=== PATIENT | female | born 1980 | race Caucasian/White ===

== ENCOUNTER 2018-10-06 13:47 | Emergency (ER) | payer OTHER ==
[~2018-10-06] VITALS: Ht 165.1 cm; Wt 108.9 kg
[2018-10-06] MEDS ORDERED: PRAVACHOL40 MG PO (13:54)
[2018-10-06] MEDS ORDERED: GLUCOPHAGE1000 MG PO (13:54)
[2018-10-06] MEDS ORDERED: TENORMIN25 MG PO (13:54)
[2018-10-06] MEDS ORDERED: PRILOSEC20 M1 PO (13:55)
[2018-10-06] MEDS ORDERED: CLARITIN10 MG PO (13:55)
[2018-10-06 14:29] LABS: BASO # 0.1 10*3/uL (0.0-0.1); BASO % 0.6 % (0.0-1.0); EOS # 0.2 10*3/uL (0.0-0.4); EOS % 2.7 % (1.0-4.0); HEMATOCRIT 39.3 % (37.0-47.0); LYMPH # 2.7 10*3/uL (1.3-4.4); LYMPH % 32.6 % (27.0-41.0); MEAN CELL VOLUME 91.8 fl (81.0-99.0); MEAN CORPUSCULAR HGB 30.4 pg (27.0-31.0); MEAN CORPUSCULAR HGB CONC 33.1 g/dl (33.0-37.0); MEAN PLATELET VOLUME 9.6 fl (9.6-12.3); MONO # 0.6 10*3/uL (0.1-1.0); MONO % 6.8 % (3.0-9.0); NEUT # 4.7 10*3/uL (2.3-7.9); NEUT % 56.9 % (47.0-73.0); PLATELET COUNT AUTOMATED 299 10*3/uL (130-400); RED BLOOD COUNT 4.28 10*6/uL (4.10-5.10); RED CELL DISTRI WIDTH 13.6 % (0-14.5); WHITE BLOOD COUNT 8.2 10*3/uL (4.8-10.8)
[2018-10-06] MEDS ORDERED: AUGMENTIN 875875 MG PO (14:34)
[2018-10-06] MEDS ORDERED: FLONASE ALLERG9.9 ML NAS (14:34)
[2018-10-06 14:43] LABS: ALBUMIN 3.5 gm/dl (3.1-4.5); ALKALINE PHOSPHATASE 79 U/L (45-117); BUN 16 mg/dl (7-24); CHLORIDE 107 mmol/L (98-107); CREATININE 0.96 mg/dL (0.55-1.02); POTASSIUM 4.2 mmol/L (3.5-5.1); SGOT/AST 12 IU/L (3-35); SGPT/ALT 21 U/L (12-78); SODIUM 137 mmol/L (136-145); TOTAL PROTEIN 7.5 gm/dL (6.4-8.2)
[2018-10-06 14:46] LABS: ACT PARTIAL THROMBO TIME 24.3 SECONDS (20.8-31.5); INTERNATIONAL NORM RATIO 0.9 (2.0-3.5)
== END 2018-10-06 15:18 | disposition home or self-care (01) ==
LOC: ED 13:47
PROVIDERS: Physician Assistant
DX: J32.0 Chronic maxillary sinusitis (principal); R23.3 Spontaneous ecchymoses; R42 Dizziness and giddiness; E11.9 Type 2 diabetes mellitus without complications; I48.91 Unspecified atrial fibrillation; K21.9 Gastro-esophageal reflux disease without esophagitis; Z88.6 Allergy status to analgesic agent; Z79.84 Long term (current) use of oral hypoglycemic drugs; Z79.899 Other long term (current) drug therapy

== ENCOUNTER 2018-11-14 21:15 | Inpatient (IN) | payer OTHER ==
[~2018-11-14] VITALS: Ht 165.1 cm; Wt 113.0 kg
--- NOTE | ~2018-11-14 | EKG ---
[place], [place] ELECTROCARDIOGRAM REPORT NAME: OSCAR LAUREANO UNIT #: [id number] ROOM: 427 DOCTOR: JOEY DRAFT REPORT BIRTHDATE: [birth year] [facility] Test Date: 2018-11-15 Test Time: 00:05:57 Pat Name: OSCAR LAUREANO Department: Room: 427 Gender: F Case Work Aide: Maggy Hernandez : 1980 Requested By: RUBIN LEYVA Order Number: [id number] Reading MD: Andrew Schmidt MD Measurements Intervals [place] Rate: 82 P: 59 MD: 165 QRS: -49 QRSD: 99 T: 32 QT: 390 QTc: 456 Interpretive Statements Sinus rhythm Left anterior fascicular block Low voltage, precordial leads Compared to earlier ECG this date Incomplete right bundle-branch block no longer present Electronically Signed On 11-16-2018 15:43:42 PST by Andrew Schmidt MD CM:EKGRPT:ELECTROCARDIOGRAM REPORT [id number] RUBIN LANDEROS DRAFT REPORT RUBIN LEYVA DO
--- NOTE | ~2018-11-14 | CON ---
[place], [place] REPORT OF CONSULTATION NAME: OSCAR LAUREANO [facility] #: [id number] UNIT #: [id number] ROOM: 427 DOCTOR: JELNEA MORRIS MD BIRTHDATE: [birth year] DOS: 11/15/2018 CARDIOLOGY CONSULTATION The patient was seen on 11/15/2018. REASON FOR CONSULTATION: Chest pain. HISTORY OF PRESENT ILLNESS: The patient is a 38-year-old woman with a history of obesity, type 2 diabetes mellitus, and cigarette abuse. She states that she moved to the local area from [place] in 07/2018. Prior to moving she was evaluated by a [facility] in [facility] by the name of Dr. Lopez on [address] [facility]. She apparently had several hospitalizations for fast heartbeat. She states that her pulse was measured over 200 beats per minute, but she was not given a diagnosis of SVT or atrial fibrillation. She states that she did have a stress test and an echocardiogram in 01/2018 and both of them were normal. She has had intermittent chest pain since then, but typically they are not persistent and resolved spontaneously. She came into the hospital on this occasion on 11/14/2018 when her chest pains did not resolve spontaneously. She stated that she had multiple episodes of chest pain beginning to the left center of her chest and radiating into her axilla and left arm. The pains were sharp and could be severe. They could last anywhere from 15 minutes to a few hours. They were not associated with dyspnea or diaphoresis and there was nothing that she could do to make them better or worse. There was nothing that seemed to bring on the pains. They did come on at rest. The patient denies any previous history of myocardial infarction or stroke. She has had diabetes for many years and has developed abdominal pain which may be due to diabetic gastroparesis. The patient believes that some of her chest pains are related to her abdominal pain. PAST MEDICAL HISTORY: Includes: 1. Obesity with body mass index over 40. 2. Type 2 diabetes mellitus. 3. Long-term and ongoing cigarette abuse. The patient currently smokes one-half pack per day, but has smoked more in the past. 4. Gastroesophageal reflux disease. 5. Hyperlipidemia. 6. Status-post surgery on her neck. 7. Status post appendectomy, cholecystectomy, lithotripsy, and tonsillectomy, as well as a right salpingo-oophorectomy. 8. History of rapid heartbeat, not currently characterized. 9. The patient claims to have had a stress test with Lexiscan and an echocardiogram in 01/2018, which were unremarkable. FAMILY HISTORY: Her father does have atrial fibrillation. Her mother has diabetes mellitus, hypertension, and cancer. [place], [place] REPORT OF CONSULTATION NAME: OSCAR LAUREANO UNIT #: [id number] ROOM: 427 DOCTOR: JELENA MORRIS MD BIRTHDATE: [birth year] REVIEW OF SYSTEMS: The patient denies diplopia or loss of vision. She denies lightheadedness or syncope. She denies nausea or vomiting. She denies fevers, chills, sweats, or recent weight change. She has had chest pain noted above. She denies orthopnea or PND. She denies cough, fevers, chills, or sweats. She denies hemoptysis or hematemesis. She denies change in bowel or bladder habits, but she states that she does have a chronic abdominal bloating and abdominal pain. She denies blood in her stools or urine. She denies peripheral edema. She denies any history of blood clots. The remainder of the review of systems is negative except as noted above. SOCIAL HISTORY: The patient recently moved to this area from [place]. She smokes about a half pack a day. She does not consume alcohol or illegal drugs. MEDICATIONS: Prior to admission atenolol 25 mg b.i.d., glyburide 2.5 mg b.i.d., metformin 1000 mg b.i.d., omeprazole 40 mg daily, pravastatin 40 mg daily at bedtime. ALLERGIES: SHE LISTS AN ALLERGY TO ASPIRIN. PHYSICAL EXAMINATION: GENERAL: The patient is an overweight white female who is awake, alert and oriented. VITAL SIGNS: Pulse is 82 and regular, blood pressure is 106/68. She is afebrile. She weighs 113 kg and has a body mass index of 41.5. HEENT: Normocephalic and atraumatic. Extraocular muscles are intact. Sclerae are clear. Pupils are equal, round, and react to light. The oral mucosa is moist. Tongue is midline. NECK: Her neck is supple. She has no jugular distention. Carotids are full. There are no bruits. She has no neck or supraclavicular masses and no thyromegaly. RESPIRATORY: Respirations are unlabored. Her chest is clear to auscultation and percussion. She has no presacral edema or chest wall tenderness. CARDIOVASCULAR: Her heart has a regular rhythm. She had no murmurs, rubs, or gallops. The PMI was not displaced. She had no precordial heave, lift, or thrill. ABDOMEN: Soft and normally active without masses, organomegaly or bruits. EXTREMITIES: Showed no edema. Peripheral pulses are palpable in the feet. She had no palpable cords and no Homans sign. LABORATORY DATA: Electrocardiogram shows sinus rhythm with a possible previous anteroseptal infarction. Hemoglobin is 13.3, white count 9400, platelet count 288,000. Sodium 138, potassium 3.6, BUN 15, creatinine 0.77. Sugar 236. Hemoglobin A1c 8.8. Serial troponin levels have been negative. Total cholesterol is 175, triglycerides 292, LDL 85, HDL 32. TSH 1.29. IMPRESSIONS: 1. Atypical chest pain. It seems unlikely that this is of cardiac origin. The patient claims to have had a normal stress test within the last year. She has [place], [place] REPORT OF CONSULTATION NAME: OSCAR LAUREANO UNIT #: [id number] ROOM: 427 DOCTOR: JELENA MORRIS MD BIRTHDATE: [birth year] no acute changes on her electrocardiogram, and despite hours of pain, has no elevation in troponin. Other causes including musculoskeletal pain, pleuritic pain, or referred gastrointestinal pain need to be considered. 2. Obesity. 3. Type 2 diabetes mellitus. 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 5. Rapid heartbeat. The patient denies being told that she had paroxysmal supraventricular tachycardia, atrial fibrillation, or atrial flutter, but states that her heart rate was as fast as 200 beats per minute. PLAN: No other inpatient cardiac workup is indicated at this time. I would like to get the reports from her hospitalizations in [place]. She states that she was hospitalized at the [facility] in [place] as well as the [facility] in [facility]. We will request those records. Further plans will be dependent upon those results, but if she truly does have SVT, she may benefit from referral to an switchboard troubleshooter for consideration of other antiarrhythmic medications or possibly ablation. I thank the hospitalist physicians for asking our advice regarding her care. JELENA MORRIS MD CM:CONSTR:REPORT OF CONSULTATION 1634 11/16/18 0032 interface
--- NOTE | ~2018-11-14 | EKG ---
[place], [place] ELECTROCARDIOGRAM REPORT NAME: OSCAR LAUREANO UNIT #: [id number] ROOM: 427 DOCTOR: JOEY DRAFT REPORT BIRTHDATE: [birth year] [facility] Test Date: 2018-11-14 Test Time: 21:17:14 Pat Name: OSCAR LAUREANO Department: er Room: 427 Gender: F Sat Instructor: EKG.VT : 1980 Requested By: RUBIN LEYVA Order Number: [id number] Reading MD: Andrew Schmidt MD Measurements Intervals [place] Rate: 96 P: 50 AL: 158 QRS: 12 QRSD: 102 T: 33 QT: 376 QTc: 476 Interpretive Statements Sinus rhythm Incomplete RBBB and LAFB Low voltage, precordial leads Probable anteroseptal infarct, old Compared to ECG 10/13/2018 23:32:31 Myocardial infarct finding now present Electronically Signed On 11-16-2018 15:41:20 PST by Andrew Schmidt MD CM:EKGRPT:ELECTROCARDIOGRAM REPORT [id number] RUBIN LANDEROS DRAFT REPORT RUBIN LEYVA DO
--- NOTE | ~2018-11-14 | EKG ---
[place], [place] ELECTROCARDIOGRAM REPORT NAME: OSCAR LAUREANO UNIT #: [id number] ROOM: 427 DOCTOR: JOEY DRAFT REPORT BIRTHDATE: [birth year] [facility] Test Date: 2018-11-15 Test Time: 02:57:05 Pat Name: OSCAR LAUREANO Department: Room: 427 Gender: F Director Of Quantitative Research: Maggy Hernandez : 1980 Requested By: RUBIN LEYVA Order Number: [id number] Reading MD: Andrew Schmidt MD Measurements Intervals [place] Rate: 88 P: 57 NV: 174 QRS: -50 QRSD: 96 T: 24 QT: 391 QTc: 473 Interpretive Statements Sinus rhythm Left anterior fascicular block Low voltage, precordial leads No change from earlier ECG this date Electronically Signed On 11-15-2018 20:03:38 PST by Andrew Schmidt MD CM:EKGRPT:ELECTROCARDIOGRAM REPORT [id number] RUBIN LANDEROS DRAFT REPORT RUBIN LEYVA DO
[~2018-11-14 21:15] MED LIST: AUGMENTIN 875875 MG PO; CLARITIN10 MG PO; FLONASE ALLERG9.9 ML NAS; GLUCOPHAGE1000 MG PO; PRAVACHOL40 MG PO; PRILOSEC20 M1 PO; PROAIR HFA8.5 GM INH; TENORMIN25 MG PO; VIBRAMYCIN100 MG PO
[2018-11-14 21:20] VITALS: BP 121/72
[2018-11-14 21:51] LABS: BASO # 0.1 10*3/uL (0.0-0.1); BASO % 0.5 % (0.0-1.0); EOS # 0.2 10*3/uL (0.0-0.4); EOS % 1.8 % (1.0-4.0); HEMATOCRIT 39.6 % (37.0-47.0); HEMOGLOBIN 13.3 g/dl (12.0-16.0); LYMPH % 21.8 % (27.0-41.0); MEAN CELL VOLUME 91.9 fl (81.0-99.0); MEAN CORPUSCULAR HGB 30.9 pg (27.0-31.0); MEAN CORPUSCULAR HGB CONC 33.6 g/dl (33.0-37.0); MEAN PLATELET VOLUME 9.7 fl (9.6-12.3); MONO # 0.8 10*3/uL (0.1-1.0); MONO % 8.1 % (3.0-9.0); NEUT # 6.3 10*3/uL (2.3-7.9); NEUT % 67.6 % (47.0-73.0); PLATELET COUNT AUTOMATED 288 10*3/uL (130-400); RED BLOOD COUNT 4.31 10*6/uL (4.10-5.10); RED CELL DISTRI WIDTH 13.2 % (0-14.5); WHITE BLOOD COUNT 9.4 10*3/uL (4.8-10.8)
[2018-11-14 21:53] VITALS: BP 121/70
[2018-11-14 22:09] LABS: ALBUMIN 3.2 gm/dl (3.1-4.5); ALKALINE PHOSPHATASE 80 U/L (45-117); BUN 15 mg/dl (7-24); CHLORIDE 104 mmol/L (98-107); CREATININE 0.78 mg/dL (0.55-1.02); POTASSIUM 3.8 mmol/L (3.5-5.1); SGOT/AST 23 IU/L (3-35); SGPT/ALT 34 U/L (12-78); SODIUM 136 mmol/L (136-145); TOTAL PROTEIN 7.3 gm/dL (6.4-8.2)
[2018-11-14 22:11] LABS: TROPONIN I < 0.015 ng/ml (<0.045)
[2018-11-14 22:12] LABS: ACT PARTIAL THROMBO TIME 21.6 SECONDS (20.8-31.5); INTERNATIONAL NORM RATIO 0.9 (2.0-3.5)
[2018-11-14 22:34] VITALS: BP 122/74
[2018-11-14 23:01] VITALS: BP 120/76
[2018-11-14 23:15] VITALS: BP 112/66
[2018-11-15 03:24] LABS: BUN 15 mg/dl (7-24); CHLORIDE 106 mmol/L (98-107); CREATININE 0.77 mg/dL (0.55-1.02); POTASSIUM 3.6 mmol/L (3.5-5.1); SODIUM 138 mmol/L (136-145)
[2018-11-15 03:29] LABS: CHOLESTEROL 175 mg/dL (<200); HDL CHOLESTEROL 32 mg/dl (40-60); LDL CHOLESTEROL 85 mg/dL (9-159); PHOSPHOROUS 2.5 mg/dL (2.5-4.9); TRIGLYCERIDES 292 mg/dl (<150); VLDL CHOLESTEROL 58 mg/dL (6-40)
[2018-11-15 12:00] VITALS: BP 106/68
[2018-11-15] MEDS ORDERED: GLYBURIDE2.5 MG PO (12:16)
[2018-11-15] MEDS ORDERED: TENORMIN25 MG PO (12:16)
[2018-11-15 16:00] VITALS: BP 103/63
[2018-11-15] MEDS ORDERED: DOXYCYCLINE100 M3 PO (19:38)
[2018-11-15 20:00] VITALS: BP 134/81
== END 2018-11-15 20:20 | disposition home or self-care (01) | DRG 392 ==
LOC: ED 21:15 → EDHOLD 22:53 → 4E 23:03
PROVIDERS: Emergency Medicine; Student in an Organized Health Care Education/Training Program; ADMIT Internal Medicine
DX: K21.9 Gastro-esophageal reflux disease without esophagitis (principal); I47.1 Supraventricular tachycardia; E44.0 Moderate protein-calorie malnutrition; Z68.41 Body mass index [BMI] 40.0-44.9, adult; I48.92 Unspecified atrial flutter; I48.0 Paroxysmal atrial fibrillation; F41.9 Anxiety disorder, unspecified; F17.210 Nicotine dependence, cigarettes, uncomplicated; E66.01 Morbid (severe) obesity due to excess calories; E11.40 Type 2 diabetes mellitus with diabetic neuropathy, unspecified; F17.200 Nicotine dependence, unspecified, uncomplicated; E11.65 Type 2 diabetes mellitus with hyperglycemia; E78.5 Hyperlipidemia, unspecified; Z71.6 Tobacco abuse counseling; Z88.6 Allergy status to analgesic agent; Z79.2 Long term (current) use of antibiotics; Z90.49 Acquired absence of other specified parts of digestive tract; Z90.721 Acquired absence of ovaries, unilateral; Z79.51 Long term (current) use of inhaled steroids; Z79.899 Other long term (current) drug therapy; Z82.49 Family history of ischemic heart disease and other diseases of the circulatory system; Z83.3 Family history of diabetes mellitus

== ENCOUNTER 2018-12-04 17:22 | Emergency (ER) | payer OTHER ==
[~2018-12-04] VITALS: Ht 165.1 cm; Wt 108.9 kg
[~2018-12-04 17:22] MED LIST changes: +DOXYCYCLINE100 M3 PO; +GLYBURIDE2.5 MG PO
== END 2018-12-04 19:23 | disposition home or self-care (01) ==
LOC: ED 17:22
DX: S90.32XA Contusion of left foot, initial encounter (principal); S90.122A Contusion of left lesser toe(s) without damage to nail, initial encounter; F17.200 Nicotine dependence, unspecified, uncomplicated; Z88.6 Allergy status to analgesic agent; Z79.2 Long term (current) use of antibiotics; Z79.84 Long term (current) use of oral hypoglycemic drugs; Z79.899 Other long term (current) drug therapy; W20.8XXA Other cause of strike by thrown, projected or falling object, initial encounter; Y93.89 Activity, other specified; Y92.89 Other specified places as the place of occurrence of the external cause; Y99.8 Other external cause status

== ENCOUNTER 2018-12-29 05:42 | Emergency (ER) | payer OTHER ==
[~2018-12-29] VITALS: Ht 165.1 cm; Wt 108.9 kg
[2018-12-29 06:20] LABS: BILIRUBIN 1+ (NEGATIVE); BLOOD 3+ (NEGATIVE); CLARITY CLOUDY (CLEAR); COLOR YELLOW (YELLOW); GLUCOSE NEGATIVE (NEGATIVE); KETONE TRACE (NEGATIVE); LEUKO ESTERASE TRACE (NEGATIVE); NITRITE NEGATIVE (NEGATIVE); PH 5.5 (5.0-9.0); SPECIFIC GRAVITY >= 1.030 (1.005-1.030); UROBILINOGEN 0.2 E.U./dl (0.2-1.0)
[2018-12-29 06:23] LABS: BASO # 0.1 10*3/uL (0.0-0.1); BASO % 0.5 % (0.0-1.0); EOS # 0.2 10*3/uL (0.0-0.4); HEMATOCRIT 39.6 % (37.0-47.0); HEMOGLOBIN 12.6 g/dl (12.0-16.0); LYMPH # 2.9 10*3/uL (1.3-4.4); LYMPH % 27.6 % (27.0-41.0); MEAN CELL VOLUME 93.6 fl (81.0-99.0); MEAN CORPUSCULAR HGB 29.8 pg (27.0-31.0); MEAN CORPUSCULAR HGB CONC 31.8 g/dl (33.0-37.0); MEAN PLATELET VOLUME 10.3 fl (9.6-12.3); MONO # 0.8 10*3/uL (0.1-1.0); MONO % 7.3 % (3.0-9.0); NEUT # 6.5 10*3/uL (2.3-7.9); NEUT % 62.4 % (47.0-73.0); PLATELET COUNT AUTOMATED 302 10*3/uL (130-400); RED BLOOD COUNT 4.23 10*6/uL (4.10-5.10); RED CELL DISTRI WIDTH 13.2 % (0-14.5); WHITE BLOOD COUNT 10.4 10*3/uL (4.8-10.8)
[2018-12-29 06:30] LABS: RBC TNTC rbc/hpf (0-2)
[2018-12-29 06:31] LABS: BACTERIA 2+; EPITHELIAL CELLS 15-20
[2018-12-29 06:48] LABS: ALBUMIN 3.4 gm/dl (3.1-4.5); ALKALINE PHOSPHATASE 81 U/L (45-117); BUN 16 mg/dl (7-24); CHLORIDE 108 mmol/L (98-107); CREATININE 0.97 mg/dL (0.55-1.02); LIPASE 188 U/L (73-393); POTASSIUM 4.1 mmol/L (3.5-5.1); SGOT/AST 12 IU/L (3-35); SGPT/ALT 26 U/L (12-78); SODIUM 140 mmol/L (136-145); TOTAL PROTEIN 7.3 gm/dL (6.4-8.2)
[2018-12-29] MEDS ORDERED: REGLAN10 M1 PO (07:54)
[2018-12-29] MEDS ORDERED: Motrin,Rufen400 MG PO (07:54)
[2018-12-29] MEDS ORDERED: TYLENOL325 M1 PO (07:54)
[2018-12-29] MEDS ORDERED: ULTRAM50 MG PO (07:54)
== END 2018-12-29 08:01 | disposition home or self-care (01) ==
LOC: ED 05:42
PROVIDERS: Student in an Organized Health Care Education/Training Program
DX: N13.2 Hydronephrosis with renal and ureteral calculous obstruction (principal); K21.9 Gastro-esophageal reflux disease without esophagitis; E78.5 Hyperlipidemia, unspecified; E66.01 Morbid (severe) obesity due to excess calories; E11.9 Type 2 diabetes mellitus without complications; F17.200 Nicotine dependence, unspecified, uncomplicated; Z87.442 Personal history of urinary calculi; Z88.6 Allergy status to analgesic agent; Z79.899 Other long term (current) drug therapy; Z79.84 Long term (current) use of oral hypoglycemic drugs; Z68.41 Body mass index [BMI] 40.0-44.9, adult; Z90.49 Acquired absence of other specified parts of digestive tract

== ENCOUNTER 2019-01-21 20:45 | Emergency (ER) | payer OTHER ==
[~2019-01-21] VITALS: Ht 162.5 cm; Wt 113.4 kg
--- NOTE | ~2019-01-21 | EKG ---
[place], [place] ELECTROCARDIOGRAM REPORT NAME: OSCAR LAUREANO UNIT #: [id number] ROOM: DOCTOR: EPIPHANY DRAFT REPORT BIRTHDATE: [birth year] [facility] Test Date: 2019-01-21 Test Time: 20:52:14 Pat Name: OSCAR LAUREANO Department: ED Room: Gender: F Pencil Inspector: Melinda Senior : 1980 Requested By: PASTOR BAUER Order Number: [id number] Reading MD: Rogelio Reveles MD Measurements Intervals [place] Rate: 81 P: 59 [place]: 175 QRS: -53 QRSD: 102 T: 17 QT: 394 QTc: 458 Interpretive Statements Sinus rhythm Inferior infarct, old Anterior infarct, age indeterminate Compared to ECG 11/15/2018 02:57:05 Myocardial infarct finding now present Left anterior fascicular block no longer present Electronically Signed On 01-23-2019 7:03:24 PDT by Rogelio Reveles MD CM:EKGRPT:ELECTROCARDIOGRAM REPORT [id number] PASTOR BAUER MD EPIPHANY DRAFT REPORT PASTOR BAUER MD
--- NOTE | ~2019-01-21 | EKG ---
[place], [place] ELECTROCARDIOGRAM REPORT NAME: OSCAR LAUREANO UNIT #: [id number] ROOM: DOCTOR: EPIPHANY DRAFT REPORT BIRTHDATE: [birth year] [facility] Test Date: 2019-01-21 Test Time: 23:22:02 Pat Name: OSCAR LAUREANO Department: Room: Gender: F Lace Tearing Supervisor: Melinda Senior : 1980 Requested By: PASTOR BAUER Order Number: [id number] Reading MD: Rogelio Reveles MD Measurements Intervals [place] Rate: 80 P: 52 [place]: 175 QRS: -58 QRSD: 101 T: 10 QT: 405 QTc: 468 Interpretive Statements Sinus rhythm Inferior infarct, old Consider anterior infarct Lateral leads are also involved Compared to ECG 11/15/2018 02:57:05 Myocardial infarct finding now present Left anterior fascicular block no longer present Electronically Signed On 01-23-2019 7:03:42 PDT by Rogelio Reveles MD CM:EKGRPT:ELECTROCARDIOGRAM REPORT [id number] PASTOR BAUER MD EPIPHANY DRAFT REPORT PASTOR BAUER MD
[~2019-01-21 20:45] MED LIST changes: +Motrin,Rufen400 MG PO; +REGLAN10 M1 PO; +TYLENOL325 M1 PO; +ULTRAM50 MG PO
[2019-01-21 21:11] LABS: BASO % 0.5 % (0.0-1.0); EOS # 0.2 10*3/uL (0.0-0.4); EOS % 1.8 % (1.0-4.0); HEMATOCRIT 38.6 % (37.0-47.0); HEMOGLOBIN 12.6 g/dl (12.0-16.0); LYMPH # 3.4 10*3/uL (1.3-4.4); LYMPH % 38.7 % (27.0-41.0); MEAN CELL VOLUME 91.7 fl (81.0-99.0); MEAN CORPUSCULAR HGB 29.9 pg (27.0-31.0); MEAN CORPUSCULAR HGB CONC 32.6 g/dl (33.0-37.0); MEAN PLATELET VOLUME 10.3 fl (9.6-12.3); MONO # 0.6 10*3/uL (0.1-1.0); MONO % 7.2 % (3.0-9.0); NEUT # 4.6 10*3/uL (2.3-7.9); NEUT % 51.7 % (47.0-73.0); PLATELET COUNT AUTOMATED 282 10*3/uL (130-400); RED BLOOD COUNT 4.21 10*6/uL (4.10-5.10); WHITE BLOOD COUNT 8.8 10*3/uL (4.8-10.8)
[2019-01-21 21:27] LABS: ALBUMIN 3.5 gm/dl (3.1-4.5); ALKALINE PHOSPHATASE 79 U/L (45-117); BUN 12 mg/dl (7-24); CHLORIDE 106 mmol/L (98-107); CREATININE 0.96 mg/dL (0.55-1.02); POTASSIUM 3.8 mmol/L (3.5-5.1); SGOT/AST 14 IU/L (3-35); SGPT/ALT 24 U/L (12-78); SODIUM 138 mmol/L (136-145); TOTAL PROTEIN 7.5 gm/dL (6.4-8.2)
[2019-01-21 21:32] LABS: TROPONIN I < 0.015 ng/ml (<0.045)
[2019-01-21 21:41] LABS: ACT PARTIAL THROMBO TIME 23.2 SECONDS (20.8-31.5); INTERNATIONAL NORM RATIO 0.9 (2.0-3.5)
== END 2019-01-22 00:10 | disposition home or self-care (01) ==
LOC: ED 20:45
PROVIDERS: Emergency Medicine Emergency Medical Services
DX: R07.89 Other chest pain (principal); K21.9 Gastro-esophageal reflux disease without esophagitis; E78.5 Hyperlipidemia, unspecified; E66.01 Morbid (severe) obesity due to excess calories; F17.200 Nicotine dependence, unspecified, uncomplicated; E11.9 Type 2 diabetes mellitus without complications; Z90.49 Acquired absence of other specified parts of digestive tract; Z98.890 Other specified postprocedural states; Z68.41 Body mass index [BMI] 40.0-44.9, adult; Z88.6 Allergy status to analgesic agent

== ENCOUNTER 2019-05-11 00:22 | Emergency (ER) | payer OTHER ==
[~2019-05-11] VITALS: Ht 162.5 cm; Wt 107.0 kg
--- NOTE | ~2019-05-11 | EKG ---
[place], [place] ELECTROCARDIOGRAM REPORT NAME: OSCAR ORTEGA UNIT #: [id number] ROOM: DOCTOR: EPIPHANY DRAFT REPORT BIRTHDATE: [address] [facility] Test Date: 2019-05-11 Test Time: 00:54:21 Pat Name: OSCAR ORTEGA Department: Room: Gender: F Bed And Breakfast Operator: STEPHANIE : 1980 Requested By: RAVEN ALEXANDER PA-C Order Number: [id number] Reading MD: Maxx Moeller MD Measurements Intervals [place] Rate: 83 P: 56 PA: 171 QRS: -55 QRSD: 101 T: 7 QT: 394 QTc: 463 Interpretive Statements Sinus rhythm Left anterior fascicular block Low voltage, extremity and precordial leads Abnormal R-wave progression, late transition Compared to ECG 01/21/2019 23:22:02 Left anterior fascicular block now present Low QRS voltage now present Myocardial infarct finding no longer present Electronically Signed On 05-11-2019 9:16:25 PDT by Maxx Moeller MD CM:EKGRPT:ELECTROCARDIOGRAM REPORT [id number] RAVEN ALEXANDER PA-C EPIPHANY DRAFT REPORT RAVEN ALEXANDER PA-C
[2019-05-11 01:13] LABS: BILIRUBIN NEGATIVE (NEGATIVE); BLOOD 3+ (NEGATIVE); CLARITY CLEAR (CLEAR); COLOR YELLOW (YELLOW); GLUCOSE 3+ (NEGATIVE); KETONE TRACE (NEGATIVE); LEUKO ESTERASE NEGATIVE (NEGATIVE); NITRITE NEGATIVE (NEGATIVE); SPECIFIC GRAVITY 1.025 (1.005-1.030); UROBILINOGEN 0.2 E.U./dl (0.2-1.0)
[2019-05-11 01:22] LABS: BASO # 0.1 10*3/uL (0.0-0.1); BASO % 0.6 % (0.0-1.0); EOS # 0.2 10*3/uL (0.0-0.4); HEMATOCRIT 36.9 % (37.0-47.0); HEMOGLOBIN 12.1 g/dl (12.0-16.0); LYMPH # 3.1 10*3/uL (1.3-4.4); LYMPH % 35.9 % (27.0-41.0); MEAN CELL VOLUME 91.6 fl (81.0-99.0); MEAN CORPUSCULAR HGB CONC 32.8 g/dl (33.0-37.0); MONO # 0.6 10*3/uL (0.1-1.0); MONO % 6.8 % (3.0-9.0); NEUT # 4.6 10*3/uL (2.3-7.9); NEUT % 54.3 % (47.0-73.0); PLATELET COUNT AUTOMATED 274 10*3/uL (130-400); RED BLOOD COUNT 4.03 10*6/uL (4.10-5.10); RED CELL DISTRI WIDTH 13.8 % (0-14.5); WHITE BLOOD COUNT 8.5 10*3/uL (4.8-10.8)
[2019-05-11 01:32] LABS: ACT PARTIAL THROMBO TIME 26.7 SECONDS (20.0-32.1); INTERNATIONAL NORM RATIO 0.8 (2.0-3.5)
[2019-05-11 01:34] LABS: RBC 31-40 rbc/hpf (0-2); WBC 0-2 wbc/hpf (0-5)
[2019-05-11 01:39] LABS: ALBUMIN 3.1 gm/dl (3.1-4.5); ALKALINE PHOSPHATASE 74 U/L (45-117); BUN 21 mg/dl (7-24); CHLORIDE 108 mmol/L (98-107); CREATININE 0.99 mg/dL (0.55-1.02); POTASSIUM 3.7 mmol/L (3.5-5.1); SGOT/AST 12 IU/L (3-35); SGPT/ALT 19 U/L (12-78); SODIUM 138 mmol/L (136-145); TOTAL PROTEIN 6.6 gm/dL (6.4-8.2)
[2019-05-11 01:47] LABS: TROPONIN I < 0.015 ng/ml (<0.045)
[2019-05-11] MEDS ORDERED: ALLEGRA ALLERG180 M2 PO (01:51)
[2019-05-11] MEDS ORDERED: FLONASE ALLERG9.9 ML NAS (01:51)
== END 2019-05-11 03:21 | disposition home or self-care (01) ==
LOC: ED 00:22
PROVIDERS: Physician Assistant
DX: R42 Dizziness and giddiness (principal); R55 Syncope and collapse; R51 Headache; E11.9 Type 2 diabetes mellitus without complications; E78.00 Pure hypercholesterolemia, unspecified; I10 Essential (primary) hypertension; F17.200 Nicotine dependence, unspecified, uncomplicated; Z88.6 Allergy status to analgesic agent; Z79.899 Other long term (current) drug therapy; Z90.49 Acquired absence of other specified parts of digestive tract

== ENCOUNTER 2020-01-14 21:46 | Emergency (ER) | payer MEDICAID ==
[~2020-01-14] VITALS: Ht 162.5 cm; Wt 108.9 kg
[~2020-01-14 21:46] MED LIST changes: +ALLEGRA ALLERG180 M2 PO
[2020-01-14 23:17] LABS: BASO # 0.1 10*3/uL (0.0-0.1); BASO % 0.8 % (0.0-1.0); EOS # 0.2 10*3/uL (0.0-0.4); EOS % 2.6 % (1.0-4.0); HEMATOCRIT 35.8 % (37.0-47.0); HEMOGLOBIN 11.5 g/dl (12.0-16.0); LYMPH # 2.9 10*3/uL (1.3-4.4); LYMPH % 39.5 % (27.0-41.0); MEAN CELL VOLUME 91.8 fl (81.0-99.0); MEAN CORPUSCULAR HGB 29.5 pg (27.0-31.0); MEAN CORPUSCULAR HGB CONC 32.1 g/dl (33.0-37.0); MONO # 0.6 10*3/uL (0.1-1.0); MONO % 8.7 % (3.0-9.0); NEUT # 3.6 10*3/uL (2.3-7.9); NEUT % 48.3 % (47.0-73.0); PLATELET COUNT AUTOMATED 301 10*3/uL (130-400); RED CELL DISTRI WIDTH 13.9 % (0-14.5); WHITE BLOOD COUNT 7.4 10*3/uL (4.8-10.8)
[2020-01-14 23:30] LABS: BUN 14 mg/dl (7-24); CHLORIDE 110 mmol/L (98-107); CREATININE 0.93 mg/dL (0.55-1.02); SODIUM 138 mmol/L (136-145)
[2020-01-15] MEDS ORDERED: ZITHROMAX250 MG PO (00:10)
== END 2020-01-15 00:20 | disposition home or self-care (01) ==
LOC: ED 21:46
PROVIDERS: Emergency Medicine Emergency Medical Services
DX: J20.9 Acute bronchitis, unspecified (principal); I10 Essential (primary) hypertension; K21.9 Gastro-esophageal reflux disease without esophagitis; E78.5 Hyperlipidemia, unspecified; E66.01 Morbid (severe) obesity due to excess calories; E11.9 Type 2 diabetes mellitus without complications; F17.200 Nicotine dependence, unspecified, uncomplicated; Z88.6 Allergy status to analgesic agent; Z68.41 Body mass index [BMI] 40.0-44.9, adult; Z79.899 Other long term (current) drug therapy

== ENCOUNTER 2020-03-11 23:56 | Emergency (ER) | payer MEDICAID ==
[~2020-03-11] VITALS: Ht 165.1 cm; Wt 108.9 kg
[~2020-03-11 23:56] MED LIST changes: +ZITHROMAX250 MG PO
[2020-03-12 00:41] LABS: BILIRUBIN NEGATIVE (NEGATIVE); BLOOD 2+ (NEGATIVE); CLARITY CLEAR (CLEAR); COLOR YELLOW (YELLOW); GLUCOSE NEGATIVE (NEGATIVE); KETONE NEGATIVE (NEGATIVE); LEUKO ESTERASE NEGATIVE (NEGATIVE); NITRITE NEGATIVE (NEGATIVE); UROBILINOGEN 0.2 E.U./dl (0.2-1.0)
[2020-03-12 00:45] LABS: BACTERIA TRACE; EPITHELIAL CELLS 41-50; RBC 31-40 rbc/hpf (0-2)
[2020-03-12 00:57] LABS: BASO # 0.1 10*3/uL (0.0-0.1); BASO % 0.6 % (0.0-1.0); EOS # 0.1 10*3/uL (0.0-0.4); EOS % 1.6 % (1.0-4.0); HEMATOCRIT 37.8 % (37.0-47.0); LYMPH # 3.2 10*3/uL (1.3-4.4); MEAN CELL VOLUME 89.2 fl (81.0-99.0); MEAN CORPUSCULAR HGB 29.2 pg (27.0-31.0); MEAN CORPUSCULAR HGB CONC 32.8 g/dl (33.0-37.0); MEAN PLATELET VOLUME 9.6 fl (9.6-12.3); MONO # 0.7 10*3/uL (0.1-1.0); MONO % 7.2 % (3.0-9.0); NEUT % 55.2 % (47.0-73.0); PLATELET COUNT AUTOMATED 342 10*3/uL (130-400); RED BLOOD COUNT 4.24 10*6/uL (4.10-5.10); RED CELL DISTRI WIDTH 14.1 % (0-14.5)
[2020-03-12 01:08] LABS: BUN 20 mg/dl (7-24); CHLORIDE 104 mmol/L (98-107); SODIUM 138 mmol/L (136-145)
[2020-03-12 01:13] LABS: B-hCG (QUALITATIVE) NEGATIVE (NEGATIVE)
== END 2020-03-12 03:23 | disposition home or self-care (01) ==
LOC: ED 23:56
PROVIDERS: Emergency Medicine Emergency Medical Services
DX: N23 Unspecified renal colic (principal); N13.2 Hydronephrosis with renal and ureteral calculous obstruction; K21.9 Gastro-esophageal reflux disease without esophagitis; E78.5 Hyperlipidemia, unspecified; E11.9 Type 2 diabetes mellitus without complications; Z79.899 Other long term (current) drug therapy

== ENCOUNTER 2024-12-10 10:08 | Emergency (ER) | payer OTHER ==
[~2024-12-10] VITALS: Ht 165.1 cm; Wt 92.2 kg
[2024-12-10] MEDS ORDERED: CETIRIZINE5 MG PO (10:32)
[2024-12-10] MEDS ORDERED: TRULICITY4.5 MG/0.5 SQ (10:32)
[2024-12-10] MEDS ORDERED: GLIPIZIDE10 M2 PO (10:32)
[2024-12-10] MEDS ORDERED: Ondansetron Hydrochloride 4 MG/2 ML VIAL IV ONE (10:40)
[2024-12-10] MEDS ORDERED: SODIUM CHLORIDE 0.9% 1,000 ML IV ONE (10:40)
[2024-12-10 11:17] LABS: BASO % 0.5 % (0.0-1.0); EOS # 0.1 10*3/uL (0.0-0.4); EOS % 1.6 % (1.0-4.0); HEMATOCRIT 33.4 % (37.0-47.0); MEAN CELL VOLUME 81.9 fl (81.0-99.0); MEAN CORPUSCULAR HGB 26.2 pg (27.0-31.0); MEAN PLATELET VOLUME 9.4 fl (9.6-12.3); MONO # 0.5 10*3/uL (0.1-1.0); MONO % 7.7 % (3.0-9.0); NEUT % 81.3 % (47.0-73.0); PLATELET COUNT AUTOMATED 241 10*3/uL (130-400); RED BLOOD COUNT 4.08 10*6/uL (4.10-5.10); WHITE BLOOD COUNT 6.1 10*3/uL (4.8-10.8)
[2024-12-10 11:36] LABS: BUN 15 mg/dl (9-23); CHLORIDE 105 mmol/L (98-107); POTASSIUM 3.8 mmol/L (3.4-5.1)
[2024-12-10] MEDS ORDERED: AVPAK AZITHROM250 M1 PO (11:52)
[2024-12-10] MEDS ORDERED: Ondansetron4 MG PO (11:52)
== END 2024-12-10 13:23 | disposition home or self-care (01) ==
LOC: ED 10:08
PROVIDERS: Emergency Medicine
DX: J32.9 Chronic sinusitis, unspecified (principal); Z20.822 Contact with and (suspected) exposure to COVID-19; R11.2 Nausea with vomiting, unspecified; E11.9 Type 2 diabetes mellitus without complications; I10 Essential (primary) hypertension; E78.5 Hyperlipidemia, unspecified; F17.200 Nicotine dependence, unspecified, uncomplicated; Z87.442 Personal history of urinary calculi; Z88.6 Allergy status to analgesic agent; Z88.8 Allergy status to other drugs, medicaments and biological substances; Z90.49 Acquired absence of other specified parts of digestive tract; Z90.89 Acquired absence of other organs; Z98.890 Other specified postprocedural states